=== PATIENT | female | born 1995 | race Caucasian/White ===

== ENCOUNTER 2023-04-27 08:35 | Outpatient (CLI) | payer OTHER, SELFPAY | END 2023-04-27 08:36 | disposition home or self-care (01) | PROVIDERS: PCP Family Medicine; Visit Provider Obstetrics & Gynecology | DX: Z01.419 Encounter for gynecological examination (general) (routine) without abnormal findings (principal); Z13.6 Encounter for screening for cardiovascular disorders; Z13.29 Encounter for screening for other suspected endocrine disorder | CPT/HCPCS: 80061; 84439; 84443 ==

== ENCOUNTER 2023-06-21 08:20 | Outpatient (CLI) | payer OTHER, SELFPAY ==
[2023-06-21 08:39] LABS: Basophils Absolute Auto 0.03 K/uL (0.00-0.30); Basophils Percent Auto 0.4 % (0.0-3.0); Eosinophils Absolute Auto 0.12 K/uL (0.00-0.50); Eosinophils Percent Auto 1.7 % (0.0-7.0); Hematocrit 37.6 % (33.0-51.0); Hemoglobin* 12.6 gm/dL (12.0-16.0); Immature Granulocytes Abs Auto 0.02 K/uL (0.00-0.30); Immature Granulocytes Pct Auto 0.3 %; Lymphocytes Percent Auto 30.2 % (20-44); Mean Corpuscular HGB Conc 34 gm/dL (32-36); Mean Corpuscular Hemoglobin 30 pg (26-34); Mean Corpuscular Volume 89 fL (80-100); Monocytes Absolute Auto 0.63 K/UL (0.00-0.90); Monocytes Percent Auto 9.1 % (0.0-11.0); Neutrophils Absolute Auto 4.05 K/uL (1.7-7.0); Neutrophils Percent Auto 58.3 % (42.0-72.0); Platelet Count* 295 K/uL (140-440); RDW Coefficient of Variation % 12.1 % (11.5-15.5); Red Blood Count 4.24 m/uL (4.00-5.20); White Blood Count* 6.95 K/uL (4.50-11.00)
[2023-06-21 08:40] LABS: Slide Review Reflex No
[2023-06-21 13:31] LABS: HCG Quantitative* 18.48 mIU/mL
== END 2023-06-21 08:21 | disposition home or self-care (01) ==
PROVIDERS: PCP Family Medicine; Visit Provider Obstetrics & Gynecology
DX: O20.9 Hemorrhage in early pregnancy, unspecified (principal)
CPT/HCPCS: 84702; 85025; 86850; 86900; 86901

== ENCOUNTER 2023-06-29 08:29 | Outpatient (CLI) | payer OTHER, SELFPAY | END 2023-06-29 08:30 | disposition home or self-care (01) | LOC: NFLDREF 07-03 19:39 | PROVIDERS: PCP Family Medicine; Referring Provider Family Medicine; Visit Provider Obstetrics & Gynecology | DX: O20.0 Threatened abortion (principal) | CPT/HCPCS: 84702 ==

== ENCOUNTER 2023-09-08 03:57 | Emergency (ER) | payer OTHER, BC, SELFPAY ==
[2023-09-08 04:08] VITALS: BP 132/77; PULSE 104; RESP 16; TEMP 37.2; O2SAT 97; BMI 34.7
--- NOTE | 2023-09-08 04:26 | CRLHL7_ITS ---
For Patients: As a result of the Century Cures Act, medical imaging exams and procedure reports are released immediately into your electronic medical record. You may view this report before your referring provider. If you have questions, please contact your health care provider. INDICATION: Vaginal bleeding in first-trimester . TECHNIQUE: Ultrasound OB pelvis transvaginal. Real-time mar-scale imaging of the pelvis was performed. COMPARISON: None FINDINGS: Sonographic imaging demonstrates a twin intrauterine gestation. Fetus A demonstrates a regular cardiac rate measuring 145 beats per minute. The embryo`s crown rump length measurement of 0.78 cm corresponds to a gestational age of 6 weeks 5 days with a sonographic due date of April 28, 2024. Fetus B demonstrates a regular cardiac rate measuring 150 beats per minute. The embryo`s crown rump length measurement of 1.02 cm corresponds to a gestational age of 7 weeks 1 day with a sonographic due date of April 25, 2024. This twin is diamniotic/dichorionic. There is a 1.2 x 1.1 x 0.9 cm perigestational hemorrhage. The ovaries are of normal size. There are no suspicious fluid collections noted in the cul-de-sac. IMPRESSION: Viable twin intrauterine . A subchorionic hemorrhage is present. No other abnormalities seen. Dictated by Candido Goetz MD @ 09/08/2023 6:46:21 AM (Electronically Signed)
--- NOTE | 2023-09-08 04:39 | ED.GENADULT ---
HPI - General Adult General Date Seen: 09/08/23 Chief complaint: Vaginal Bleeding Stated complaint: Needs ultrasound--possible miscarriage Time Seen by Provider: 09/08/23 04:26 History of Present Illness HPI narrative: Very pleasant 28-year-old female who is a , currently 7 weeks based on LMP presenting to the ER tonight for evaluation of painless vaginal bleeding that began can about 1 hour prior to presentation. 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 She is about 7 weeks with her 3rd . She had a miscarriage about 2 months ago at 5 weeks of . Prior to that she had a full-term with her 2-year-old daughter, a couple of years ago. She is blood type O-positive. No other long-term medical conditions per For the past few weeks she has been having symptoms of including abdominal bloating, nausea, and other related symptoms. She follows with the [facility]. She was on shift tonight when she began to have vaginal bleeding. Not as heavy as a normal. . No clots. No cramping or pain with it. She contacted the on-call OB provider who instructed her to check into the ER to obtain a pelvic ultrasound (since she has not yet had an ultrasound with this current , and we need to rule out ectopic) Related Data Home Medications ?Medication ?Instructions ?Recorded ?Confirmed docosahexaenoic acid 200 mg mg PO 04/19/22 04/27/23 capsule ( DHA) omega-3 fatty acids 500 mg capsule 500 mg PO QDAY 04/27/23 04/27/23 Allergies Allergy/AdvReac Type Severity Reaction Status Date / Time No Known Drug Allergies Allergy Verified 04/27/23 08:24 [facility] Medical History (Updated 09/08/23 @ 06:59 by Hector Block MD) No active medical problems Social History (Updated 04/27/23 @ 08:34 by Eula Stinson MA) What is your current living situation?: I presently have a place to live Problems where you live: no known problems In the past 12 months, utilities in danger of being shut off: no In past 12 months, lack of transportation kept you from medical appts, meetings, work, or getting things needed for daily living: no In the past 12 mos, have been you worried that your food would run out before you had money to buy more?: never true In the past 12 mos, the food you bought just didn't last and you didn't have money to buy more?: never true Smoking Status: Never smoker How often do you have a drink containing alcohol: never AUDIT-C Alcohol total score: 0 Non-prescribed substance use: denies use How often does anyone, including family, friends and others, physically hurt you: never How often does anyone, including family, friends and others, insult or talk down to you: never How often does anyone, including family, friends and others, threaten you with harm: never How often does anyone, including family, friends and others, scream or curse at you: never Little interest or pleasure in doing things: not at all Feeling down, depressed, or hopeless: not at all Exam Narrative: Exam Narrative: Constitutional: Appears well-developed and well-nourished. Active. Non-toxic appearing. HENT: Head: Atraumatic. No signs of injury. Nose: No nasal discharge. Mouth/Throat: Mucous membranes are moist. Eyes: Conjunctivae normal and EOM are normal. Pupils are equal, round, and reactive to light. Right eye exhibits no discharge. Left eye exhibits no discharge. No icterus. Neck: Normal range of motion. Neck supple. No adenopathy. No stridor. Cardiovascular: Normal rate and regular rhythm. No murmur heard. No murmurs, rubs, or gallops. Brisk capillary refill in all 4 extremities. Pulmonary/Chest: Effort normal. No stridor. No respiratory distress. No wheezes.No rhonchi. No rales. No retractions. Abdominal: Soft. Bowel sounds are normal. No distension. No mass. There is no tenderness. There is no rebound and no guarding. Pelvic exam: Deferred Musculoskeletal: Normal range of motion. No edema. No tenderness. No deformity. Neurological: Alert. Normal strength. No cranial nerve deficit or sensory deficit. Coordination normal. GCS eye subscore is 4. GCS verbal subscore is 5. GCS motor subscore is 6. Skin: Skin is warm. No rash noted. Const: Vital Signs, click to edit/add: Vital Signs - 24 hr 09/08/23 04:08 Temperature 99.0 F Pulse Rate [Pulse Oximeter] 104 H Respiratory Rate 16 Blood Pressure [Ri ght Upper Arm] 132/77 Pulse Oximetry 97 Oxygen Delivery Me thod Room Air Course Vital Signs Vital signs: Initial Vital Signs Temperature 99.0 F 09/08/23 04:08 Temperature Source Temporal Artery Scan 09/08/23 04:08 Pulse Rate 104 H 09/08/23 04:08 Respiratory Rate 16 09/08/23 04:08 Blood Pressure 132/77 09/08/23 04:08 Blood Pressure Mean 95 09/08/23 04:08 Blood Pressure Position Sitting 09/08/23 04:08 Pulse Oximetry 97 09/08/23 04:08 Oxygen Delivery Method Room Air 09/08/23 04:08 Vital Signs Temperature 99.0 F 09/08/23 04:08 Pulse Rate 104 H 09/08/23 04:08 Respiratory Rate 16 09/08/23 04:08 Blood Pressure 132/77 09/08/23 04:08 Pulse Oximetry 97 09/08/23 04:08 Oxygen Delivery Method Room Air 09/08/23 04:08 Temperature 99.0 F 09/08/23 04:08 Pulse Rate 104 H 09/08/23 04:08 Respiratory Rate 16 09/08/23 04:08 Blood Pressure 132/77 09/08/23 04:08 Pulse Oximetry 97 09/08/23 04:08 Oxygen Delivery Method Room Air 09/08/23 04:08 Medical Decision Making MDM Narrative Medical decision making narrative: This female who is currently 7 weeks , presents for evaluation of painless vaginal bleeding that began tonight. I considered a broad differential including ectopic , subchorionic hemorrhage, uterine bleeding, active miscarriage, etc. no urinary symptoms to suggest UTI. No discharge to suggest infection. she is not having any pain to suggest appendicitis, or Non gynecologic causes considered included , appendicitis, cholecystitis, volvulus, intraabdominal abscess, among others. In this patient, there are no signs of serious etiologies of abdominal pain. The workup here suggests threatened miscarriage. However, she has two viablie pregnancies. There is a subchorionic hemorrhage. At this point, patient is hemodynamically stable, hemoglobin is reassuring, and bleeding is not predicted to become life threatening. Plan is home, close follow-up with OB, threatened miscarriage precautions, and return to ED for worsening pain, heavy vaginal bleeding (more than 1 pad soaked every hour). Questions were answered. Follow up with OB in 2-4 days for follow up. Lab Data Labs: Lab Results 09/08/23 Range/Units 04:36 WBC 6.89 (4.50-11.00) K/uL RBC 4.10 (4.00-5.20) m/uL Hgb 12.1 (12.0-16.0) gm/dL Hct 36.5 (33.0-51.0) % MCV 89 (80-100) fL MCH 30 (26-34) pg MCHC 33 (32-36) gm/dL RDW Coeff of Celia 13.0 (11.5-15.5) % Plt Count 233 (140-440) K/uL Neut % (Auto) 68.8 (42.0-72.0) % Lymph % (Auto) 20.6 (20-44) % Calhoun % (Auto) 8.9 (0.0-11.0) % Eos % (Auto) 1.3 (0.0-7.0) % Baso % (Auto) 0.3 (0.0-3.0) % Neut # (Auto) 4.74 (1.7-7.0) K/uL Lymph # (Auto) 1.42 (0.90-2.90) K/uL Calhoun # (Auto) 0.60 (0.00-0.90) K/UL Eos # (Auto) 0.09 (0.00-0.50) K/uL Baso # (Auto) 0.02 (0.00-0.30) K/uL Abs Immat Gran (auto) 0.01 (0.00-0.30) K/uL Imm/Tot Granulo (auto) 0.1 % HCG, Quant 321682.00 mIU/mL Discharge Plan Discharge Clinical Impression: Threatened Patient Disposition: Home, Self-Care Condition: Stable Instructions: Threatened Miscarriage (ED) Additional Instructions: Please follow-up with the OB clinic within 1 week for re-evaluation and repeat ultrasound. If you have worsening symptoms such as pelvic cramping, heavier bleeding, lightheadedness or dizziness, fever, or any problems, please call your OB or return to the ER immediately to be rechecked. For the next several days drink plenty of fluids. Stay hydrated. He had healthy diet. Avoid heavy lifting or other strenuous activities. Do not insert anything into her vagina until you are cleared to do so by her tie sawyer Prescriptions: No Action DHA 200 mg capsule PO omega-3 fatty acids 500 mg capsule 500 mg PO QDAY Follow Up/Referrals: Provider,Not a Local [Primary Care Provider] - Stand Alone Forms: [facility] Info Instructions
[2023-09-08 04:56] LABS: Basophils Absolute Auto 0.02 K/uL (0.00-0.30); Basophils Percent Auto 0.3 % (0.0-3.0); Eosinophils Absolute Auto 0.09 K/uL (0.00-0.50); Eosinophils Percent Auto 1.3 % (0.0-7.0); Hematocrit 36.5 % (33.0-51.0); Hemoglobin* 12.1 gm/dL (12.0-16.0); Immature Granulocytes Abs Auto 0.01 K/uL (0.00-0.30); Immature Granulocytes Pct Auto 0.1 %; Lymphocytes Absolute Auto 1.42 K/uL (0.90-2.90); Lymphocytes Percent Auto 20.6 % (20-44); Mean Corpuscular HGB Conc 33 gm/dL (32-36); Mean Corpuscular Hemoglobin 30 pg (26-34); Mean Corpuscular Volume 89 fL (80-100); Monocytes Percent Auto 8.9 % (0.0-11.0); Neutrophils Absolute Auto 4.74 K/uL (1.7-7.0); Neutrophils Percent Auto 68.8 % (42.0-72.0); Platelet Count* 233 K/uL (140-440); White Blood Count* 6.89 K/uL (4.50-11.00)
[2023-09-08 04:58] LABS: Slide Review Reflex No
== END 2023-09-08 07:05 | disposition home or self-care (01) ==
PROVIDERS: Emergency Provider Emergency Medicine
DX: O20.0 Threatened abortion (principal)
CPT/HCPCS: 36415; 76817; 76830; 84702; 85025; 99283